=== PATIENT | male | born 1955 | race Caucasian/White ===

== ENCOUNTER 2016-09-02 13:30 | Emergency (ER) | payer OTHER ==
[~2016-09-02] VITALS: Ht 172.7 cm; Wt 100.9 kg
[2016-09-02 13:45] LABS: HEMATOCRIT 51.9 % (38.0-50.0); MCH 27.3 PG (29.0-34.0); MCHC 32.6 G/DL (30.0-36.0); MCV 83.8 FL (86-99); MEAN PLAT.VOLUME 11.3 uM^3 (9.0-12.4); PLATELET COUNT 265 K/uL (156-360); RBC DIS.WIDTH-CV 15.8 % (11.8-14.6); RBC DIS.WIDTH-SD 46.5 % (39-53); RED BLOOD COUNT 6.19 M/uL (4.00-5.50); WHITE BLOOD COUNT 8.4 K/uL (4.1-10.2)
[2016-09-02 13:55] LABS: CHLORIDE 104 mEq/L (99-109); POTASSIUM 4.2 mEq/L (3.7-5.4); SODIUM 140 mEq/L (136-147)
[2016-09-02 13:56] LABS: MAGNESIUM 2.1 mg/dL (1.3-2.7)
[2016-09-02 13:57] LABS: GLUCOSE 106 mg/dL (70-99)
[2016-09-02 13:59] LABS: ANION GAP 14 MEQ/L (2-14)
[2016-09-02 14:01] LABS: GFR ESTIMATE (CALCULATED) > 59 mL/min/
[2016-09-02 14:02] LABS: UREA NITROGEN (BUN) 13 mg/dL (9-23)
[2016-09-02 14:04] LABS: TROP-I INTERPRETATION NEGATIVE; TROPONIN-I < 0.01 ng/mL (0.0-0.30)
[2016-09-02] MEDS ORDERED: METOPROLOL SUCC25 MG PO (14:52)
[2016-09-02 16:08] VITALS: BP 133/92
[2016-09-02] MEDS ORDERED: ADVAIR 250/501 DISK IH (16:17)
[2016-09-02] MEDS ORDERED: PRAVASTATIN SOD20 MG PO (16:17)
[2016-09-02] MEDS ORDERED: MONTELUKAST SOD10 MG PO (16:17)
== END 2016-09-02 16:19 | disposition home or self-care (01) ==
LOC: EME 13:30
PROVIDERS: Emergency Medicine
DX: I47.1 Supraventricular tachycardia (principal); I10 Essential (primary) hypertension; E78.5 Hyperlipidemia, unspecified; Z87.891 Personal history of nicotine dependence
CPT/HCPCS: 71010; 80048; 83735; 84443; 84484; 85027; 93005; 99281; 99285; J0153; J7030

== ENCOUNTER → 2016-10-22 | Day surgery (SDC) | payer OTHER ==
[~2016-10-22] VITALS: Ht 172.7 cm; Wt 96.2 kg
[~2016-10-22] MED LIST: ADVAIR 250/501 DISK IH; CARVEDILOL6.25 MG PO; CENTRUM SILVER1 EAC3 PO; CLARITIN,ALAVAR10 MG PO; FLONASE16 G1 BOTH NARES; LISINOPRIL10 MG PO; METOPROLOL SUCC25 MG PO; METOPROLOL TART50 MG PO; MONTELUKAST SOD10 MG PO; PRAVASTATIN SOD20 MG PO; PROAIR HFA8.5 GM IH
== END | disposition home or self-care (01) ==
LOC: CATH 10-16 14:00
DX: I42.9 Cardiomyopathy, unspecified (principal); E78.5 Hyperlipidemia, unspecified; I47.1 Supraventricular tachycardia; R94.31 Abnormal electrocardiogram [ECG] [EKG]; R53.82 Chronic fatigue, unspecified; J45.909 Unspecified asthma, uncomplicated
CPT/HCPCS: 93005; C1769; C1887; J1200; J1644; J2250; J3010